=== PATIENT | female | born 1950 | race Caucasian/White ===

== ENCOUNTER 2024-06-23 09:11 | Outpatient (RCR) | payer MEDICARE, BC, SELFPAY ==
[2024-06-23 10:05] VITALS: BP 146/61
[2024-06-23 10:23] VITALS: BP 142/64
[2024-06-23 12:11] VITALS: BP 152/73
[2024-06-23 12:12] VITALS: BP 152/73
[2024-06-23 12:37] VITALS: BP 131/65
[2024-06-23 14:31] VITALS: BP 151/61
== END 2024-07-19 23:59 | disposition home or self-care (01) ==
LOC: OID 09:11
PROVIDERS: ATTENDING PHYSICIAN Internal Medicine
DX: D64.9 Anemia, unspecified (principal)
CPT/HCPCS: 36415; 36430; 86850; 86900; 86901; 86920; P9016

== ENCOUNTER 2024-09-03 08:36 | Outpatient (RCR) | payer MEDICARE, BC, SELFPAY ==
[2024-09-03] VITALS (7 sets, daily range): BP systolic 106–131; BP diastolic 45–72
== END 2024-09-18 23:59 | disposition home or self-care (01) ==
LOC: OID 08:36
PROVIDERS: ATTENDING PHYSICIAN Internal Medicine
DX: D64.9 Anemia, unspecified (principal)
CPT/HCPCS: 36415; 36430; 86850; 86900; 86901; 86920; P9016